=== PATIENT | male | born 1980 | race Caucasian/White ===

== ENCOUNTER 2018-03-16 16:09 | Inpatient (IN) | payer MEDICAID ==
[2018-03-16 19:11] LABS: WHITE BLOOD COUNT 6.7 10^3/ul (4.8-10.8)
[2018-03-16 19:11] LABS: ABNORMAL IP MESSAGE 1; HEMATOCRIT 23.6 % (42.0-52.0); MEAN CORPUSCULAR HEMOGLOBIN 15.8 pg (29.0-33.0); MEAN CORPUSCULAR HGB CONC 25.8 g/dl (32.0-37.0); MEAN CORPUSCULAR VOLUME 61.3 fl (82.0-101.0); NUCLEATED RED BLOOD CELLS% 0.7 /100WBC (0.0-0.0); PLATELET COUNT 755 10^3/UL (140-415); POSITIVE DIFF @See below; RED BLOOD COUNT 3.85 10^6/ul (4.70-6.10); RED CELL DISTRIBUTION WIDTH 22.5 % (11.5-14.5)
[2018-03-16 19:18] LABS: ALANINE AMINOTRANSFERASE 25 IU/L (13-69); ALBUMIN 3.7 g/dl (3.3-4.9); ALBUMIN/GLOBULIN RATIO 0.84; ALKALINE PHOSPHATASE 88 IU/L (42-121); ANION GAP 16 (8-16); ASPARTATE AMINO TRANSFERASE 19 IU/L (15-46); BILIRUBIN,INDIRECT 0.3 mg/dl (0-1.1); BILIRUBIN,TOTAL 0.3 mg/dl (0.2-1.3); BLOOD UREA NITROGEN 7 mg/dl (7-20); CALCIUM 8.5 mg/dl (8.4-10.2); CARBON DIOXIDE 25 mmol/L (21-31); CHLORIDE 106 mmol/L (97-110); CREATININE 0.81 mg/dl (0.61-1.24); GLUCOSE 101 mg/dl (70-220); LIPASE 77 U/L (23-300); POTASSIUM 3.9 mmol/L (3.5-5.1); SODIUM 143 mmol/L (135-144); TOTAL PROTEIN 8.1 g/dl (6.1-8.1)
[2018-03-16 19:24] LABS: ADD MAN DIFF? YES; HEMOGLOBIN 6.1 g/dl (14.0-18.0)
[2018-03-16 19:29] LABS: INR 1.07; PT RATIO 1.1
[2018-03-16 19:30] LABS: PARTIAL THROMBOPLASTIN TIME 32.1 Sec (25.0-35.0); TROPONIN-I < 0.012 ng/ml (0.000-0.120)
[2018-03-16 20:07] LABS: ANISOCYTOSIS 3+ (0-0); BAND NEUTROPHILS #M 0.6 10^3/ul (0.0-0.6); BAND NEUTROPHILS % (M) 10 % (0-4); BASOPHIL #M 0.1 10^3/ul (0.0-0.0); BASOPHILS % (M) 2 % (0-2); EOSINOPHILS % (M) 7 % (0-7); ERYTHROBLAST% (NRBC) (M) 3 % (0-0); HYPOCHROMASIA 1+ (0-0); LYMPHOCYTES % (M) 31 % (15-51); MICROCYTOSIS 3+ (0-0); MONOCYTE #M 0.4 10^3/ul (0.3-0.9); MONOCYTES % (M) 6 % (0-11); PLATELET ESTIMATE NORMAL; POIKILOCYTOSIS 2+ (0-0); POLYCHROMASIA 2+ (0-0); SEGMENTED NEUTROPHILS (M) % 44 % (39-77); SMUDGE%M 11 % (0-0)
[2018-03-16] MEDS ORDERED: NACL 0.9% 3 ML SYG IV (21:00)
[2018-03-16] MEDS ORDERED: ONDANSETRON 4 MG INJ IV (21:00)
[2018-03-16] MEDS ORDERED: morphine 2 MG INJ IV (21:00)
[2018-03-16 22:24] LABS: C-REACTIVE PROTEIN 2.2 mg/dl (0.0-0.9)
[2018-03-16 22:44] LABS: IRON 12 ug/dl (35-150)
[2018-03-16 22:54] LABS: % IRON SATURATION 3 % SAT (22-52); TOTAL IRON BINDING CAPACITY 369 ug/dl (241-421)
[2018-03-16 23:22] LABS: ERYTHROCYTE SEDIMENTATION RATE 91 mm/Hr (0-15)
[2018-03-16 23:24] LABS: CARCINOEMBRYONIC ANTIGEN 3.6 ng/ml (0.0-5.0)
[2018-03-16 23:28] LABS: OCCULT BLOOD STOOL POSITIVE (NEGATIVE)
[2018-03-17] MEDS ORDERED: metroNIDAZOLE 500 MG/NS (PMX) 100 ML IVPB (00:30)
[2018-03-17] MEDS: ACETAMINOPHEN 325 MG TAB PO (00:55)
[2018-03-17] MEDS ORDERED: CIPROFLOXACIN 400MG/D5W 200 ML IVPB (02:00)
[2018-03-17] MEDS: metroNIDAZOLE 500 MG/NS (PMX) 100 ML IVPB ×3 (05:50→21:06)
[2018-03-17] MEDS: SOD CHLORIDE 0.9% 1,000 ML IV ×2 (05:50→12:30)
[2018-03-17 06:55] LABS: ADD MAN DIFF? NO
[2018-03-17 07:00] LABS: WHITE BLOOD COUNT 5.4 10^3/ul (4.8-10.8)
[2018-03-17 07:00] LABS: ABNORMAL IP MESSAGE 1; BASOPHILS % 0.7 % (0.0-2.0); EOSINOPHILS # 0.5 10^3/ul (0.0-0.5); EOSINOPHILS % 8.4 % (0.0-7.0); HEMATOCRIT 24.7 % (42.0-52.0); LYMPHOCYTES # 1.7 10^3/ul (0.8-2.9); LYMPHOCYTES % 31.2 % (15.0-51.0); MEAN CORPUSCULAR HGB CONC 28.7 g/dl (32.0-37.0); MEAN CORPUSCULAR VOLUME 66.2 fl (82.0-101.0); MEAN PLATELET VOLUME 8.1 fl (7.4-10.4); MONOCYTE # 0.8 10^3/ul (0.3-0.9); MONOCYTES % 14.7 % (0.0-11.0); NEUTROPHIL # 2.4 10^3/ul (1.6-7.5); NEUTROPHILS % 44.6 % (39.0-77.0); NUCLEATED RED BLOOD CELLS% 0.7 /100WBC (0.0-0.0); PLATELET COUNT 574 10^3/UL (140-415); POSITIVE DIFF @See below; RED BLOOD COUNT 3.73 10^6/ul (4.70-6.10); RED CELL DISTRIBUTION WIDTH 26.5 % (11.5-14.5)
[2018-03-17 07:05] LABS: HEMOGLOBIN 7.1 g/dl (14.0-18.0)
[2018-03-17 07:18] LABS: LACTIC ACID 0.9 mmol/L (0.5-2.0)
[2018-03-17 07:23] LABS: ALANINE AMINOTRANSFERASE 27 IU/L (13-69); ALBUMIN 2.9 g/dl (3.3-4.9); ALKALINE PHOSPHATASE 68 IU/L (42-121); ANION GAP 15 (8-16); ASPARTATE AMINO TRANSFERASE 17 IU/L (15-46); BILIRUBIN,INDIRECT 0.5 mg/dl (0-1.1); BILIRUBIN,TOTAL 0.5 mg/dl (0.2-1.3); BLOOD UREA NITROGEN 8 mg/dl (7-20); CARBON DIOXIDE 27 mmol/L (21-31); CHLORIDE 104 mmol/L (97-110); CHOL/HDL RATIO 5.5 RATIO; CHOLESTEROL 99 mg/dl (100-200); CREATININE 0.75 mg/dl (0.61-1.24); GLUCOSE 87 mg/dl (70-220); HDL CHOLESTEROL 18 mg/dl (28-63); LDL CHOLESTEROL,CALCULATED 44 mg/dl; MAGNESIUM 2.2 mg/dl (1.7-2.5); POTASSIUM 3.9 mmol/L (3.5-5.1); SODIUM 142 mmol/L (135-144); TOTAL PROTEIN 6.1 g/dl (6.1-8.1); TRIGLYCERIDES 183 mg/dl (0-149)
[2018-03-17 07:39] LABS: FREE THYROXINE INDEX (Calc) 2.62 ug/ml (0.65-3.89); T3 UPTAKE 32.4 % (23.5-40.5); T4 (THYROXINE) 8.1 ug/dl (5.5-11.0)
[2018-03-17 07:45] LABS: HEMOGLOBIN A1C 5.7 % (0-5.9)
[2018-03-17] MEDS: CIPROFLOXACIN 400MG/D5W 200 ML IVPB ×2 (09:06→21:06)
[2018-03-17 10:33] LABS: IMMEDIATE SPIN CROSSMATCH 1 3
[2018-03-17 15:37] LABS: WHITE BLOOD COUNT 5.6 10^3/ul (4.8-10.8)
[2018-03-17 15:37] LABS: ABNORMAL IP MESSAGE 1; HEMATOCRIT 28.6 % (42.0-52.0); HEMOGLOBIN 8.4 g/dl (14.0-18.0); MEAN CORPUSCULAR HEMOGLOBIN 20.1 pg (29.0-33.0); MEAN CORPUSCULAR HGB CONC 29.4 g/dl (32.0-37.0); MEAN CORPUSCULAR VOLUME 68.4 fl (82.0-101.0); NUCLEATED RED BLOOD CELLS% 0.7 /100WBC (0.0-0.0); PLATELET COUNT 618 10^3/UL (140-415); POSITIVE DIFF @See below; RED BLOOD COUNT 4.18 10^6/ul (4.70-6.10); RED CELL DISTRIBUTION WIDTH 27.9 % (11.5-14.5)
[2018-03-17 15:41] LABS: ADD MAN DIFF? YES
[2018-03-17] MEDS: MESALAMINE (EC) 400 MG CAP PO (21:06)
[2018-03-18] MEDS: SOD CHLORIDE 0.9% 1,000 ML IV ×3 (00:37→15:25)
[2018-03-18] MEDS: PANTOPRAZOLE 40 MG INJ IV (05:37)
[2018-03-18] MEDS: metroNIDAZOLE 500 MG/NS (PMX) 100 ML IVPB ×3 (05:37→22:04)
[2018-03-18 06:57] LABS: ADD MAN DIFF? NO
[2018-03-18 07:02] LABS: WHITE BLOOD COUNT 5.6 10^3/ul (4.8-10.8)
[2018-03-18 07:02] LABS: ABNORMAL IP MESSAGE 1; BASOPHIL # 0.1 10^3/ul (0.0-0.1); BASOPHILS % 0.9 % (0.0-2.0); EOSINOPHILS # 0.5 10^3/ul (0.0-0.5); EOSINOPHILS % 8.8 % (0.0-7.0); HEMATOCRIT 30.2 % (42.0-52.0); HEMOGLOBIN 8.8 g/dl (14.0-18.0); LYMPHOCYTES # 1.6 10^3/ul (0.8-2.9); LYMPHOCYTES % 28.6 % (15.0-51.0); MEAN CORPUSCULAR HEMOGLOBIN 19.9 pg (29.0-33.0); MEAN CORPUSCULAR HGB CONC 29.1 g/dl (32.0-37.0); MEAN CORPUSCULAR VOLUME 68.2 fl (82.0-101.0); MEAN PLATELET VOLUME 7.9 fl (7.4-10.4); MONOCYTE # 0.7 10^3/ul (0.3-0.9); NEUTROPHIL # 2.8 10^3/ul (1.6-7.5); NEUTROPHILS % 49.2 % (39.0-77.0); NUCLEATED RED BLOOD CELLS% 0.5 /100WBC (0.0-0.0); PLATELET COUNT 630 10^3/UL (140-415); POSITIVE DIFF @See below; RED BLOOD COUNT 4.43 10^6/ul (4.70-6.10); RED CELL DISTRIBUTION WIDTH 27.5 % (11.5-14.5)
[2018-03-18 07:22] LABS: PHOSPHORUS 4.8 mg/dl (2.5-4.9)
[2018-03-18 07:22] LABS: MAGNESIUM 2.2 mg/dl (1.7-2.5)
[2018-03-18 07:27] LABS: ALANINE AMINOTRANSFERASE 23 IU/L (13-69); ALBUMIN 3.4 g/dl (3.3-4.9); ALBUMIN/GLOBULIN RATIO 0.97; ALKALINE PHOSPHATASE 74 IU/L (42-121); ANION GAP 16 (8-16); ASPARTATE AMINO TRANSFERASE 17 IU/L (15-46); BILIRUBIN,INDIRECT 0.2 mg/dl (0-1.1); BILIRUBIN,TOTAL 0.2 mg/dl (0.2-1.3); BLOOD UREA NITROGEN 6 mg/dl (7-20); CALCIUM 8.1 mg/dl (8.4-10.2); CARBON DIOXIDE 27 mmol/L (21-31); CHLORIDE 105 mmol/L (97-110); CREATININE 0.75 mg/dl (0.61-1.24); GLUCOSE 79 mg/dl (70-220); POTASSIUM 3.7 mmol/L (3.5-5.1); SODIUM 144 mmol/L (135-144); TOTAL PROTEIN 6.9 g/dl (6.1-8.1)
[2018-03-18 08:06] LABS: HIV 1&2 ANTIBODY NEGATIVE (NEGATIVE)
[2018-03-18] MEDS: MESALAMINE (EC) 400 MG CAP PO ×3 (08:51→22:03)
[2018-03-18] MEDS: MAGNESIUM CITRATE 300 ML BTL PO (08:51)
[2018-03-18] MEDS: CIPROFLOXACIN 400MG/D5W 200 ML IVPB ×2 (08:51→22:03)
[2018-03-18] MEDS: POLYETHYLENE GLYCOL 3350 119 GM POWDER PO ×2 (09:35→15:48)
[2018-03-18] MEDS: BISACODYL (EC) 5 MG TAB PO ×2 (09:35→15:47)
[2018-03-18] MEDS ORDERED: BISACODYL (EC) 5 MG TAB PO (16:30)
[2018-03-18] MEDS: SOD FERRIC GLUC COMPLX 125 MG in SOD CHLORIDE 0.9% 100 ML IVPB (16:53)
[2018-03-18] MEDS ORDERED: MAGNESIUM CITRATE 300 ML BTL PO (17:30)
[2018-03-18] MEDS ORDERED: morphine LIQ (10 MG/5 ML) CUP PO (17:30)
[2018-03-18] MEDS ORDERED: POLYETHYLENE GLYCOL 3350 119 GM POWDER PO (18:30)
[2018-03-19] MEDS: PANTOPRAZOLE 40 MG INJ IV (05:37)
[2018-03-19] MEDS: metroNIDAZOLE 500 MG/NS (PMX) 100 ML IVPB ×3 (05:37→22:57)
[2018-03-19] MEDS: SOD CHLORIDE 0.9% 1,000 ML IV (05:42)
[2018-03-19] MEDS ORDERED: POLYETHYLENE GLYCOL 3350 119 GM POWDER PO (06:00)
[2018-03-19] MEDS ORDERED: BISACODYL (EC) 5 MG TAB PO (08:00)
[2018-03-19] MEDS: CIPROFLOXACIN 400MG/D5W 200 ML IVPB ×2 (08:26→21:43)
[2018-03-19] MEDS: MESALAMINE (EC) 400 MG CAP PO ×3 (08:26→20:43)
[2018-03-19 10:59] LABS: ADD MAN DIFF? NO
[2018-03-19 11:05] LABS: WHITE BLOOD COUNT 5.3 10^3/ul (4.8-10.8)
[2018-03-19 11:05] LABS: ABNORMAL IP MESSAGE 1; BASOPHIL # 0.1 10^3/ul (0.0-0.1); BASOPHILS % 0.9 % (0.0-2.0); EOSINOPHILS # 0.5 10^3/ul (0.0-0.5); EOSINOPHILS % 8.7 % (0.0-7.0); HEMATOCRIT 29.4 % (42.0-52.0); HEMOGLOBIN 8.5 g/dl (14.0-18.0); LYMPHOCYTES # 1.5 10^3/ul (0.8-2.9); LYMPHOCYTES % 27.4 % (15.0-51.0); MEAN CORPUSCULAR HGB CONC 28.9 g/dl (32.0-37.0); MEAN PLATELET VOLUME 7.9 fl (7.4-10.4); MONOCYTE # 0.7 10^3/ul (0.3-0.9); MONOCYTES % 12.8 % (0.0-11.0); NEUTROPHIL # 2.6 10^3/ul (1.6-7.5); NEUTROPHILS % 49.4 % (39.0-77.0); NUCLEATED RED BLOOD CELLS% 0.4 /100WBC (0.0-0.0); PLATELET COUNT 611 10^3/UL (140-415); POSITIVE DIFF @See below; RED BLOOD COUNT 4.26 10^6/ul (4.70-6.10); RED CELL DISTRIBUTION WIDTH 28.5 % (11.5-14.5)
[2018-03-19] MEDS: SOD CHLORIDE 0.9% 100 ML (13:09)
[2018-03-19] MEDS: IOHEXOL 300MG/ML 150 ML BTL (13:09)
[2018-03-19 13:12] LABS: ANA SCREEN NEGATIVE (NEGATIVE)
[2018-03-19 16:11] LABS: MYELOPEROXIDASE ANTIBODY 2.6 AI; PROTEINASE-3 ANTIBODY <1.0 AI
[2018-03-19] MEDS: LIDOCAINE 2% (SDV) 5 ML INJ (18:09)
[2018-03-19] MEDS: PROPOFOL 60 ML (18:09)
[2018-03-19] MEDS: SOD FERRIC GLUC COMPLX 125 MG in SOD CHLORIDE 0.9% 100 ML IVPB (20:42)
[2018-03-19] MEDS: METHYLPREDNISOLONE 40 MG INJ IV (21:44)
[2018-03-20] MEDS: PANTOPRAZOLE 40 MG INJ IV (05:24)
[2018-03-20] MEDS: SOD CHLORIDE 0.9% 1,000 ML IV ×3 (05:24→23:15)
[2018-03-20] MEDS: METHYLPREDNISOLONE 40 MG INJ IV (06:05)
[2018-03-20] MEDS: metroNIDAZOLE 500 MG/NS (PMX) 100 ML IVPB ×3 (06:06→21:58)
[2018-03-20 06:26] LABS: ADD MAN DIFF? NO
[2018-03-20 06:34] LABS: WHITE BLOOD COUNT 6.8 10^3/ul (4.8-10.8)
[2018-03-20 06:34] LABS: ABNORMAL IP MESSAGE 1; BASOPHILS % 0.3 % (0.0-2.0); EOSINOPHILS % 0.1 % (0.0-7.0); HEMATOCRIT 30.7 % (42.0-52.0); HEMOGLOBIN 8.9 g/dl (14.0-18.0); LYMPHOCYTES # 1.2 10^3/ul (0.8-2.9); LYMPHOCYTES % 17.3 % (15.0-51.0); MEAN CORPUSCULAR HEMOGLOBIN 20.2 pg (29.0-33.0); MEAN CORPUSCULAR VOLUME 69.8 fl (82.0-101.0); MONOCYTE # 0.2 10^3/ul (0.3-0.9); MONOCYTES % 2.4 % (0.0-11.0); NEUTROPHIL # 5.4 10^3/ul (1.6-7.5); NEUTROPHILS % 79.3 % (39.0-77.0); PLATELET COUNT 671 10^3/UL (140-415); POSITIVE DIFF @See below; RED CELL DISTRIBUTION WIDTH 29.4 % (11.5-14.5)
[2018-03-20 07:06] LABS: ANION GAP 13 (8-16); BLOOD UREA NITROGEN 5 mg/dl (7-20); CALCIUM 8.2 mg/dl (8.4-10.2); CARBON DIOXIDE 24 mmol/L (21-31); CHLORIDE 111 mmol/L (97-110); CREATININE 0.67 mg/dl (0.61-1.24); GLUCOSE 109 mg/dl (70-220); POTASSIUM 4.6 mmol/L (3.5-5.1); SODIUM 143 mmol/L (135-144)
[2018-03-20] MEDS: MESALAMINE (EC) 400 MG CAP PO ×3 (08:33→20:15)
[2018-03-20] MEDS: CIPROFLOXACIN 400MG/D5W 200 ML IVPB ×2 (08:33→20:10)
[2018-03-20] MEDS: SOD FERRIC GLUC COMPLX 125 MG in SOD CHLORIDE 0.9% 100 ML IVPB (17:12)
[2018-03-20] MEDS: predniSONE 10 MG TAB PO (20:15)
[2018-03-21] MEDS: PANTOPRAZOLE 40 MG INJ IV (05:22)
[2018-03-21] MEDS: metroNIDAZOLE 500 MG/NS (PMX) 100 ML IVPB ×3 (05:23→21:55)
[2018-03-21 05:42] LABS: ADD MAN DIFF? NO
[2018-03-21 05:47] LABS: WHITE BLOOD COUNT 11.7 10^3/ul (4.8-10.8)
[2018-03-21 05:47] LABS: ABNORMAL IP MESSAGE 1; BASOPHILS % 0.3 % (0.0-2.0); EOSINOPHILS % 0.2 % (0.0-7.0); HEMATOCRIT 31.6 % (42.0-52.0); LYMPHOCYTES # 1.7 10^3/ul (0.8-2.9); LYMPHOCYTES % 14.7 % (15.0-51.0); MEAN CORPUSCULAR HEMOGLOBIN 20.2 pg (29.0-33.0); MEAN CORPUSCULAR HGB CONC 28.5 g/dl (32.0-37.0); MONOCYTE # 0.7 10^3/ul (0.3-0.9); MONOCYTES % 6.3 % (0.0-11.0); NEUTROPHIL # 8.9 10^3/ul (1.6-7.5); NEUTROPHILS % 76.6 % (39.0-77.0); NUCLEATED RED BLOOD CELLS% 0.2 /100WBC (0.0-0.0); PLATELET COUNT 733 10^3/UL (140-415); POSITIVE DIFF @See below; RED BLOOD COUNT 4.45 10^6/ul (4.70-6.10); RED CELL DISTRIBUTION WIDTH 30.5 % (11.5-14.5)
[2018-03-21] MEDS: predniSONE 10 MG TAB PO ×2 (09:52→20:31)
[2018-03-21] MEDS: MESALAMINE (EC) 400 MG CAP PO ×3 (09:52→20:31)
[2018-03-21] MEDS: CIPROFLOXACIN 400MG/D5W 200 ML IVPB ×2 (09:52→20:31)
[2018-03-21] MEDS: SOD CHLORIDE 0.9% 1,000 ML IV (13:06)
[2018-03-21 14:27] LABS: ANCA SCREEN NEGATIVE (NEGATIVE)
[2018-03-21] MEDS: SOD FERRIC GLUC COMPLX 125 MG in SOD CHLORIDE 0.9% 100 ML IVPB (16:16)
[2018-03-22] MEDS: metroNIDAZOLE 500 MG/NS (PMX) 100 ML IVPB ×2 (05:26→14:00)
[2018-03-22] MEDS: SOD CHLORIDE 0.9% 1,000 ML IV ×3 (05:26→17:30)
[2018-03-22] MEDS: PANTOPRAZOLE 40 MG INJ IV (05:29)
[2018-03-22 05:54] LABS: ADD MAN DIFF? NO
[2018-03-22 06:04] LABS: ABNORMAL IP MESSAGE 1; BASOPHILS % 0.2 % (0.0-2.0); EOSINOPHILS % 0.1 % (0.0-7.0); HEMATOCRIT 31.5 % (42.0-52.0); HEMOGLOBIN 9.1 g/dl (14.0-18.0); LYMPHOCYTES # 2.1 10^3/ul (0.8-2.9); LYMPHOCYTES % 13.4 % (15.0-51.0); MEAN CORPUSCULAR HEMOGLOBIN 20.7 pg (29.0-33.0); MEAN CORPUSCULAR HGB CONC 28.9 g/dl (32.0-37.0); MEAN CORPUSCULAR VOLUME 71.8 fl (82.0-101.0); MEAN PLATELET VOLUME 7.9 fl (7.4-10.4); MONOCYTE # 0.9 10^3/ul (0.3-0.9); MONOCYTES % 5.7 % (0.0-11.0); NEUTROPHIL # 11.6 10^3/ul (1.6-7.5); NEUTROPHILS % 76.3 % (39.0-77.0); NUCLEATED RED BLOOD CELLS # 0.1 10^3/ul (0.0-0.0); NUCLEATED RED BLOOD CELLS% 0.7 /100WBC (0.0-0.0); PLATELET COUNT 698 10^3/UL (140-415); POSITIVE DIFF @See below; RED BLOOD COUNT 4.39 10^6/ul (4.70-6.10)
[2018-03-22 06:04] LABS: WHITE BLOOD COUNT 15.3 10^3/ul (4.8-10.8)
[2018-03-22] MEDS: CIPROFLOXACIN 400MG/D5W 200 ML IVPB (08:52)
[2018-03-22] MEDS: MESALAMINE (EC) 400 MG CAP PO ×2 (08:52→12:54)
[2018-03-22] MEDS: predniSONE 10 MG TAB PO (08:52)
[2018-03-22] MEDS: SOD FERRIC GLUC COMPLX 125 MG in SOD CHLORIDE 0.9% 100 ML IVPB (17:06)
== END 2018-03-22 20:13 | disposition home or self-care (01) | DRG 386 ==
LOC: E/R 16:09 → PP2 21:56
PROC: 0DBK8ZX Excision of Ascending Colon, Via Natural or Artificial Opening Endoscopic, Diagnostic (ICD-10-PCS; principal; 2018-03-19 16:04)
PROC: 0DBL8ZX Excision of Transverse Colon, Via Natural or Artificial Opening Endoscopic, Diagnostic (ICD-10-PCS; 2018-03-19 16:04)
PROC: 0DBB8ZX Excision of Ileum, Via Natural or Artificial Opening Endoscopic, Diagnostic (ICD-10-PCS; 2018-03-19 16:04)
PROC: 0DBH8ZX Excision of Cecum, Via Natural or Artificial Opening Endoscopic, Diagnostic (ICD-10-PCS; 2018-03-19 16:04)
PROC: 0DBM8ZZ Excision of Descending Colon, Via Natural or Artificial Opening Endoscopic (ICD-10-PCS; 2018-03-19 16:04)
PROC: 0DBP8ZZ Excision of Rectum, Via Natural or Artificial Opening Endoscopic (ICD-10-PCS; 2018-03-19 16:04)
PROC: 30233N1 Transfusion of Nonautologous Red Blood Cells into Peripheral Vein, Percutaneous Approach (ICD-10-PCS; 2018-03-19 16:04)
PROC: 30233N1 Transfusion of Nonautologous Red Blood Cells into Peripheral Vein, Percutaneous Approach (ICD-10-PCS; 2018-03-19 16:04)
DX: K51.911 Ulcerative colitis, unspecified with rectal bleeding (principal); D62 Acute posthemorrhagic anemia; D50.9 Iron deficiency anemia, unspecified; K51.90 Ulcerative colitis, unspecified, without complications; E66.9 Obesity, unspecified; Z68.33 Body mass index [BMI] 33.0-33.9, adult; Z87.891 Personal history of nicotine dependence
CPT/HCPCS: 36415; 36430; 71045; 74177; 80048; 80053; 80061; 82270; 82378; 83036; 83540; 83605; 83690; 83735; 84100; 84436; 84479; 84484; 85025; 85610; 85651; 85730; 86021; 86038; 86140; 86644; 86674; 86703; 86850; 86900; 86901; 86920; 87045; 87075; 87177; 87205; 88305; 93005; 99285-25